=== PATIENT | male | born 1955 | race African-American/Black ===

== ENCOUNTER 2017-11-02 01:25 | Inpatient (IN) | payer MEDICARE, OTHER ==
[~2017-11-02] VITALS: Ht 165.1 cm; Wt 67.1 kg
[2017-11-02] VITALS (53 sets, daily range): BP systolic 94–152; BP diastolic 52–90
[2017-11-02 02:50] LABS: BASOPHILS % 1.4 % (0.0-2.0); EOSINOPHILS % 0.5 % (0.0-5.0); HEMATOCRIT. 38.3 % (42.0-52.0); LYMPHOCYTES % 28.7 % (20.0-50.0); MEAN CORPUSCULAR HEMOGLOBIN 32.3 pg (28.0-32.0); MEAN CORPUSCULAR VOLUME 94.9 fL (80.0-94.0); MEAN PLATELET VOLUME 7.4 fl (7.4-10.4); MONOCYTES % 5.6 % (2.0-8.0); NEUTROPHILS % 63.8 % (40.0-76.0); PLATELET 194 x1000/uL (130-400); RED BLOOD CELL COUNT 4.03 mill/uL (4.7-6.1); RED CELL DISTRIBUTION WIDTH 15.4 % (11.6-14.6)
[2017-11-02 03:09] LABS: CLARITY URINE CLEAR (CLEAR); COLOR URINE YELLOW (YELLOW); GLUCOSE URINE 3+ (NEGATIVE); KETONES URINE NEGATIVE (NEGATIVE); LEUKOCYTE ESTERASE URINE NEGATIVE (NEGATIVE); NITRITE URINE NEGATIVE (NEGATIVE); OCCULT BLOOD URINE NEGATIVE (NEGATIVE); PROTEIN URINE NEGATIVE (NEGATIVE); SPECIFIC GRAVITY URINE 1.021 (1.005-1.030); UROBILINOGEN URINE 0.2 E.U./dL (0.2-1.0)
[2017-11-02 03:22] LABS: CARBON DIOXIDE 28 mEq/L (21-32); CHLORIDE 109 mEq/L (98-107); CREATINE KINASE 225 IU/L (39-308)
[2017-11-02 03:25] LABS: *AMPHETAMINES SCREEN URINE NEGATIVE (NEGATIVE); *BARBITURATES SCREEN URINE NEGATIVE (NEGATIVE); *BENZODIAZEPINES SCREEN URINE NEGATIVE (NEGATIVE); *COCAINE SCREEN URINE NEGATIVE (NEGATIVE); CANNABINOID URINE SCREEN NEGATIVE (NEGATIVE); METHADONE URINE SCREEN NEGATIVE (NEGATIVE); OPIATES URINE SCREEN NEGATIVE (NEGATIVE); PHENCYCLIDINE URINE SCREEN NEGATIVE (NEGATIVE)
[2017-11-02 03:34] LABS: ETHANOL BLOOD 432 mg/dL
[2017-11-02] MEDS ORDERED: LORAZEPAM 2MG/ML CPJ IV ONE (05:00)
[2017-11-02] MEDS ORDERED: IOHEXOL-350 100 ML BOTTLE ONE ×2 (06:37→09:19)
[2017-11-02] MEDS ORDERED: IPRATROPIUM/ALBUTEROL 0.5-3(2.5)MG/3ML NEB INH PRN (07:30)
[2017-11-02] MEDS ORDERED: LORAZEPAM 2MG/ML CPJ IV PRN (07:30)
[2017-11-02] MEDS ORDERED: DIPHENHYDRAMINE 50MG/ML VIAL IV PRN (07:30)
[2017-11-02] MEDS ORDERED: ONDANSETRON HCL 4MG/2ML VIAL IV PRN (07:30)
[2017-11-02] MEDS ORDERED: ACETAMINOPHEN 650MG SUPP PR PRN (07:30)
[2017-11-02 08:55] LABS: FOLIC ACID (FOLATE) SERUM 7.4 ng/mL (>5.38)
[2017-11-02] MEDS ORDERED: MVI, ADULT NO.1 10 ML, FOLIC ACID 1 MG, THIAMINE HCL 100 MG in SODIUM CHLORIDE 0.9% 1,0... IV SCH ×4 (10:00)
[2017-11-02] MEDS: LEVETIRACETAM 500MG PREMIX 100 ML IV SCH ×2 (10:38→21:10)
[2017-11-02] MEDS: FAMOTIDINE 20MG/2ML VIAL IV SCH ×2 (10:38→21:05)
[2017-11-02] MEDS ORDERED: NICARDIPINE 100 MG in SODIUM CHLORIDE 0.9% 60 ML IV PRN (11:30)
[2017-11-02] MEDS: DEXAMETHASONE 4MG/ML 1ML VIAL IV SCH ×2 (12:01→18:03)
[2017-11-02] MEDS: PHENYTOIN SODIUM 100MG/2ML VIAL IV SCH ×2 (14:50→21:05)
[2017-11-02] MEDS ORDERED: DEXT 5%/LACTATED RINGERS 1,000 ML IV SCH (18:00)
[2017-11-02] MEDS ORDERED: DEXTROSE 50% WATER 50ML SYRINGE IV PRN (18:45)
[2017-11-02] MEDS ORDERED: BISA-81 PO (18:59)
[2017-11-02] MEDS ORDERED: NVLG73 SUBCUT (18:59)
[2017-11-02] MEDS ORDERED: CROM10DR7 OP (18:59)
[2017-11-02] MEDS ORDERED: ATOR40TA70 PO (18:59)
[2017-11-02] MEDS ORDERED: CARB100T4 PO (18:59)
[2017-11-02] MEDS ORDERED: PANT40TA4 PO (18:59)
[2017-11-02] MEDS ORDERED: ACET-2853 PO (18:59)
[2017-11-02] MEDS ORDERED: ERGO500013 PO (18:59)
[2017-11-02] MEDS ORDERED: AMYL1CAP57 PO (18:59)
[2017-11-02] MEDS ORDERED: AMLO5TAB4 PO (18:59)
[2017-11-02] MEDS ORDERED: THIA100T75 PO (18:59)
[2017-11-02] MEDS ORDERED: POTASSIUM CHLORIDE INJ 20 MEQ in DEXT 5% WATER 100 ML IV NR (20:00)
[2017-11-02] MEDS: BLOOD SUGAR DIAGNOSTIC STRIP TEST SCH (21:07)
[2017-11-02] MEDS: DEXT 5%/0.9% NACL 1,000 ML IV SCH (21:08)
[2017-11-02] MEDS: INSULIN LISPRO 100 UNITS/ML SUBCUT SCH (21:25)
[2017-11-03] VITALS (68 sets, daily range): BP systolic 119–158; BP diastolic 70–103
[2017-11-03] MEDS: DEXAMETHASONE 4MG/ML 1ML VIAL IV SCH ×5 (00:41→23:56)
[2017-11-03] MEDS: PHENYTOIN SODIUM 100MG/2ML VIAL IV SCH ×3 (05:01→21:50)
[2017-11-03 05:39] LABS: CARBON DIOXIDE 25 mEq/L (21-32); CHLORIDE 105 mEq/L (98-107)
[2017-11-03] MEDS ORDERED: IOHEXOL-350 100 ML BOTTLE ONE ×2 (07:11→19:36)
[2017-11-03] MEDS: INSULIN LISPRO 100 UNITS/ML SUBCUT SCH ×4 (07:28→21:35)
[2017-11-03] MEDS: BLOOD SUGAR DIAGNOSTIC STRIP TEST SCH ×4 (07:28→21:35)
[2017-11-03] MEDS: FAMOTIDINE 20MG/2ML VIAL IV SCH ×2 (08:49→21:34)
[2017-11-03] MEDS: LEVETIRACETAM 500MG PREMIX 100 ML IV SCH ×2 (09:58→23:55)
[2017-11-03] MEDS ORDERED: LORAZEPAM 2MG/ML CPJ IV PRN (12:45)
[2017-11-03] MEDS ORDERED: NICOTINE 21MG PATCH TD SCH (13:00)
[2017-11-03 14:07] LABS: HEPATITIS B SURFACE ANTIGEN NEGATIVE
[2017-11-03 14:36] LABS: HEPATITIS B CORE AB IGM NEGATIVE
[2017-11-03 14:37] LABS: HEPATITIS A AB IGM NEGATIVE (NEGATIVE)
[2017-11-03] MEDS: DEXT 5%/0.9% NACL 1,000 ML IV SCH (15:07)
[2017-11-03] MEDS: FOLIC ACID 1MG TABLET PO SCH (15:08)
[2017-11-03] MEDS ORDERED: LEVETIRACETAM 500MG PREMIX 100 ML IV SCH ×4 (22:00→23:30)
[2017-11-04] VITALS (52 sets, daily range): BP systolic 116–171; BP diastolic 62–111
[2017-11-04] MEDS: BLOOD SUGAR DIAGNOSTIC STRIP TEST SCH ×4 (05:41→20:55)
[2017-11-04] MEDS: INSULIN LISPRO 100 UNITS/ML SUBCUT SCH ×4 (05:45→20:59)
[2017-11-04] MEDS: PHENYTOIN SODIUM 250MG/5ML VIAL IV SCH ×3 (05:53→22:18)
[2017-11-04] MEDS: DEXAMETHASONE 4MG/ML 1ML VIAL IV SCH ×3 (05:53→17:28)
[2017-11-04] MEDS: FOLIC ACID 1MG TABLET PO SCH (09:45)
[2017-11-04] MEDS: FAMOTIDINE 20MG/2ML VIAL IV SCH ×2 (09:45→20:45)
[2017-11-04] MEDS: THIAMINE HCL 100MG TABLET PO SCH (09:45)
[2017-11-04] MEDS: MULTIVITAMINS,THER W-MINERALS TABLET PO SCH (09:45)
[2017-11-04] MEDS: LEVETIRACETAM 500MG PREMIX 100 ML IV SCH ×2 (09:46→22:18)
[2017-11-04] MEDS: NICOTINE 21MG PATCH TD SCH (09:48)
[2017-11-04 10:43] LABS: EOSINOPHILS % 0.1 % (0.0-5.0); LYMPHOCYTES % 18.3 % (20.0-50.0); MEAN CORPUSCULAR HEMOGLOBIN 30.7 pg (28.0-32.0); MEAN CORPUSCULAR VOLUME 94.4 fL (80.0-94.0); MEAN PLATELET VOLUME 7.9 fl (7.4-10.4); MONOCYTES % 9.1 % (2.0-8.0); NEUTROPHILS % 71.5 % (40.0-76.0); PLATELET 241 x1000/uL (130-400); RED BLOOD CELL COUNT 4.23 mill/uL (4.7-6.1); RED CELL DISTRIBUTION WIDTH 14.9 % (11.6-14.6)
[2017-11-04 10:47] LABS: CHLORIDE 104 mEq/L (98-107)
[2017-11-04 10:54] LABS: CARBON DIOXIDE 19 mEq/L (21-32)
[2017-11-04] MEDS ORDERED: PHENYTOIN SODIUM 1,000 MG in SODIUM CHLORIDE 0.9% 100 ML IV SCH (18:00)
[2017-11-05] VITALS: BP 125/71
[2017-11-05] MEDS: DEXAMETHASONE 4MG/ML 1ML VIAL IV SCH ×4 (00:20→17:15)
[2017-11-05 04:00] VITALS: BP 119/73
[2017-11-05] MEDS: PHENYTOIN SODIUM 250MG/5ML VIAL IV SCH (06:19)
[2017-11-05] MEDS: BLOOD SUGAR DIAGNOSTIC STRIP TEST SCH ×3 (06:19→17:08)
[2017-11-05 08:00] VITALS: BP 117/73
[2017-11-05] MEDS: THIAMINE HCL 100MG TABLET PO SCH (08:38)
[2017-11-05] MEDS: MULTIVITAMINS,THER W-MINERALS TABLET PO SCH (08:38)
[2017-11-05] MEDS: FOLIC ACID 1MG TABLET PO SCH (08:39)
[2017-11-05] MEDS: LEVETIRACETAM 500MG PREMIX 100 ML IV SCH (08:39)
[2017-11-05] MEDS: INSULIN LISPRO 100 UNITS/ML SUBCUT SCH ×3 (08:40→17:19)
[2017-11-05] MEDS ORDERED: FAMOTIDINE 20MG TABLET PO SCH (09:00)
[2017-11-05] MEDS: NICOTINE 21MG PATCH TD SCH (11:46)
[2017-11-05 12:00] VITALS: BP 123/75
[2017-11-05] MEDS ORDERED: PHENYTOIN SODIUM EXTENDED 100MG CAPSULE PO SCH (15:00)
[2017-11-05 16:00] VITALS: BP 102/65
[2017-11-05 16:42] VITALS: BP 102/65
== END 2017-11-05 17:30 | DRG 64 ==
LOC: ER 01:39 → MICUNO 07:22 → ENRESERV 07:57 → 7WST 11-04 18:30
PROVIDERS: ADMIT Internal Medicine; ATTEND Internal Medicine
DX: I63.9 Cerebral infarction, unspecified (principal); I60.9 Nontraumatic subarachnoid hemorrhage, unspecified; G92 Toxic encephalopathy; J84.9 Interstitial pulmonary disease, unspecified; K86.0 Alcohol-induced chronic pancreatitis; E11.65 Type 2 diabetes mellitus with hyperglycemia; E83.51 Hypocalcemia; T51.0X1A Toxic effect of ethanol, accidental (unintentional), initial encounter; F19.10 Other psychoactive substance abuse, uncomplicated; G40.909 Epilepsy, unspecified, not intractable, without status epilepticus; D64.9 Anemia, unspecified; E11.9 Type 2 diabetes mellitus without complications; W10.9XXA Fall (on) (from) unspecified stairs and steps, initial encounter; R26.9 Unspecified abnormalities of gait and mobility; Y93.01 Activity, walking, marching and hiking; E87.6 Hypokalemia; F10.229 Alcohol dependence with intoxication, unspecified; Y90.8 Blood alcohol level of 240 mg/100 ml or more; I10 Essential (primary) hypertension; F17.210 Nicotine dependence, cigarettes, uncomplicated; R32 Unspecified urinary incontinence; Y99.8 Other external cause status; Z79.4 Long term (current) use of insulin; Z82.49 Family history of ischemic heart disease and other diseases of the circulatory system; Y92.89 Other specified places as the place of occurrence of the external cause
CPT/HCPCS: 36415; 70450; 70496; 70498; 70551; 71010; 80048; 80053; 80061; 80185; 80305; 81001; 82550; 82607; 82746; 82962; 83036; 83540; 83550; 85025; 86705; 86709; 86803; 87015; 87045; 87340; 87427; 87449; 87493; 89055; 92523; 93306; 93970; 96374; 97112; 97116; 97162; 97166; 97530; 99285; G0482; J1100; J1165; J1200; J1815; J1953; J2060; J3411; J3480; J3490; J7030; J7040; J7042; J7050; J7060; Q9967

== ENCOUNTER 2017-11-05 17:30 | Inpatient (IN) | payer MEDICARE ==
[~2017-11-05] VITALS: Ht 165.1 cm; Wt 67.1 kg
[~2017-11-05 17:30] MED LIST: ACET-2853 PO; AMLO5TAB4 PO; AMYL1CAP57 PO; ATOR40TA70 PO; BISA-81 PO; CARB100T4 PO; CROM10DR7 OP; ERGO500013 PO; NVLG73 SUBCUT; PANT40TA4 PO; THIA100T75 PO
[2017-11-05 18:06] VITALS: BP 108/67
[2017-11-05] MEDS ORDERED: ACETAMINOPHEN 325MG TABLET PO PRN (18:45)
[2017-11-05] MEDS ORDERED: DIPHENHYDRAMINE 50MG/ML VIAL IV PRN (18:45)
[2017-11-05] MEDS ORDERED: ONDANSETRON HCL 4MG/2ML VIAL IV PRN (18:45)
[2017-11-05] MEDS ORDERED: LORAZEPAM 2MG/ML CPJ IV PRN (18:45)
[2017-11-05] MEDS ORDERED: DEXTROSE 50% WATER 50ML SYRINGE IV PRN (18:45)
[2017-11-05] MEDS ORDERED: IPRATROPIUM/ALBUTEROL 0.5-3(2.5)MG/3ML NEB HHN PRN (18:45)
[2017-11-05 20:00] VITALS: BP 119/76
[2017-11-05] MEDS ORDERED: INSULIN LISPRO 100 UNITS/ML SUBCUT SCH (21:00)
[2017-11-05] MEDS: PHENYTOIN SODIUM EXTENDED 100MG CAPSULE PO SCH (21:56)
[2017-11-05] MEDS: FAMOTIDINE 20MG TABLET PO SCH (21:56)
[2017-11-05] MEDS: LEVETIRACETAM 500 MG in SODIUM CHLORIDE 0.9% 100 ML IV SCH (21:56)
[2017-11-05] MEDS: BLOOD SUGAR DIAGNOSTIC STRIP TEST SCH (21:58)
[2017-11-05] MEDS: INSULIN LISPRO 100 UNITS/ML SUBCUT SCH (22:33)
[2017-11-05] MEDS: INSULIN DETEMIR UD 100 UNITS/ML SYR SUBCUT SCH (22:47)
[2017-11-06] MEDS: DEXAMETHASONE 4MG/ML 1ML VIAL IV SCH ×3 (00:13→12:24)
[2017-11-06] MEDS: BLOOD SUGAR DIAGNOSTIC STRIP TEST SCH ×4 (06:12→21:37)
[2017-11-06] MEDS: PHENYTOIN SODIUM EXTENDED 100MG CAPSULE PO SCH ×3 (06:13→21:37)
[2017-11-06] MEDS: INSULIN LISPRO 100 UNITS/ML SUBCUT SCH ×7 (06:19→21:40)
[2017-11-06] MEDS ORDERED: BLOOD SUGAR DIAGNOSTIC STRIP TEST SCH (06:30)
[2017-11-06 07:13] LABS: BASOPHILS % 0.5 % (0.0-2.0); HEMATOCRIT. 37.9 % (42.0-52.0); HEMOGLOBIN. 12.7 g/dL (14.0-18.0); LYMPHOCYTES % 29.8 % (20.0-50.0); MEAN CORPUSCULAR HEMOGLOBIN 31.5 pg (28.0-32.0); MEAN CORPUSCULAR VOLUME 94.2 fL (80.0-94.0); MEAN PLATELET VOLUME 7.9 fl (7.4-10.4); NEUTROPHILS % 61.7 % (40.0-76.0); PLATELET 242 x1000/uL (130-400); RED BLOOD CELL COUNT 4.03 mill/uL (4.7-6.1); RED CELL DISTRIBUTION WIDTH 14.6 % (11.6-14.6)
[2017-11-06 08:00] VITALS: BP 106/72
[2017-11-06] MEDS: LEVETIRACETAM 500 MG in SODIUM CHLORIDE 0.9% 100 ML IV SCH ×2 (08:34→21:37)
[2017-11-06] MEDS: THIAMINE HCL 100MG TABLET PO SCH (08:38)
[2017-11-06] MEDS: MULTIVITAMINS,THER W-MINERALS TABLET PO SCH (08:38)
[2017-11-06] MEDS: FOLIC ACID 1MG TABLET PO SCH (08:38)
[2017-11-06] MEDS: FAMOTIDINE 20MG TABLET PO SCH ×2 (08:38→21:37)
[2017-11-06 08:50] LABS: CARBON DIOXIDE 27 mEq/L (21-32); CHLORIDE 102 mEq/L (98-107)
[2017-11-06] MEDS: NICOTINE 21MG PATCH TD SCH (09:04)
[2017-11-06 20:00] VITALS: BP 100/65
[2017-11-06] MEDS: DEXAMETHASONE 1MG TABLET PO SCH (21:37)
[2017-11-06] MEDS: INSULIN DETEMIR UD 100 UNITS/ML SYR SUBCUT SCH (21:39)
[2017-11-07] MEDS: BLOOD SUGAR DIAGNOSTIC STRIP TEST SCH ×4 (06:09→21:34)
[2017-11-07] MEDS: PHENYTOIN SODIUM EXTENDED 100MG CAPSULE PO SCH ×3 (06:09→21:34)
[2017-11-07] MEDS: INSULIN LISPRO 100 UNITS/ML SUBCUT SCH ×7 (06:36→21:35)
[2017-11-07 08:00] VITALS: BP 100/66
[2017-11-07] MEDS: MULTIVITAMINS,THER W-MINERALS TABLET PO SCH (08:44)
[2017-11-07] MEDS: DEXAMETHASONE 1MG TABLET PO SCH ×2 (08:44→21:34)
[2017-11-07] MEDS: FAMOTIDINE 20MG TABLET PO SCH ×2 (08:44→21:34)
[2017-11-07] MEDS: THIAMINE HCL 100MG TABLET PO SCH (08:44)
[2017-11-07] MEDS: FOLIC ACID 1MG TABLET PO SCH (08:44)
[2017-11-07] MEDS: LEVETIRACETAM 500 MG in SODIUM CHLORIDE 0.9% 100 ML IV SCH ×2 (08:44→21:34)
[2017-11-07] MEDS: NICOTINE 21MG PATCH TD SCH (08:53)
[2017-11-07 20:20] VITALS: BP 108/70
[2017-11-07] MEDS: INSULIN DETEMIR UD 100 UNITS/ML SYR SUBCUT SCH (21:36)
[2017-11-08] MEDS: PHENYTOIN SODIUM EXTENDED 100MG CAPSULE PO SCH ×3 (06:38→21:36)
[2017-11-08] MEDS: BLOOD SUGAR DIAGNOSTIC STRIP TEST SCH ×4 (06:38→21:36)
[2017-11-08] MEDS: INSULIN LISPRO 100 UNITS/ML SUBCUT SCH ×7 (06:39→21:42)
[2017-11-08 08:00] VITALS: BP 111/72
[2017-11-08] MEDS: LEVETIRACETAM 500 MG in SODIUM CHLORIDE 0.9% 100 ML IV SCH (08:51)
[2017-11-08] MEDS: MULTIVITAMINS,THER W-MINERALS TABLET PO SCH (08:51)
[2017-11-08] MEDS: THIAMINE HCL 100MG TABLET PO SCH (08:51)
[2017-11-08] MEDS: FOLIC ACID 1MG TABLET PO SCH (08:51)
[2017-11-08] MEDS: FAMOTIDINE 20MG TABLET PO SCH ×2 (08:51→21:36)
[2017-11-08] MEDS: DEXAMETHASONE 1MG TABLET PO SCH ×2 (08:52→21:36)
[2017-11-08] MEDS: NICOTINE 21MG PATCH TD SCH (08:56)
[2017-11-08 20:00] VITALS: BP 105/66
[2017-11-08] MEDS ORDERED: LEVETIRACETAM 500MG PREMIX 100 ML IV SCH (21:00)
[2017-11-08] MEDS: LEVETIRACETAM 500MG TABLET PO SCH (21:36)
[2017-11-08] MEDS: INSULIN DETEMIR UD 100 UNITS/ML SYR SUBCUT SCH (21:43)
[2017-11-09] MEDS: BLOOD SUGAR DIAGNOSTIC STRIP TEST SCH (06:05)
[2017-11-09] MEDS: PHENYTOIN SODIUM EXTENDED 100MG CAPSULE PO SCH (06:27)
[2017-11-09] MEDS: INSULIN LISPRO 100 UNITS/ML SUBCUT SCH ×2 (06:29)
[2017-11-09 08:00] VITALS: BP 136/84
[2017-11-09] MEDS: MULTIVITAMINS,THER W-MINERALS TABLET PO SCH (08:27)
[2017-11-09] MEDS: LEVETIRACETAM 500MG TABLET PO SCH (08:27)
[2017-11-09] MEDS: FOLIC ACID 1MG TABLET PO SCH (08:27)
[2017-11-09] MEDS: FAMOTIDINE 20MG TABLET PO SCH (08:27)
[2017-11-09] MEDS: DEXAMETHASONE 1MG TABLET PO SCH (08:27)
[2017-11-09] MEDS: NICOTINE 21MG PATCH TD SCH (08:28)
[2017-11-09] MEDS: THIAMINE HCL 100MG TABLET PO SCH (08:28)
[2017-11-09 10:46] VITALS: BP 101/67
[2017-11-10 19:12] LABS: 25-HYDROXY VITAMIN D3 9.1 ng/mL (.)
== END 2017-11-09 11:00 | disposition home health service (06) | DRG 64 ==
PROVIDERS: ADMIT Physical Medicine & Rehabilitation Spinal Cord Injury Medicine; ATTEND Internal Medicine
DX: I63.9 Cerebral infarction, unspecified (principal); S06.6X9A Traumatic subarachnoid hemorrhage with loss of consciousness of unspecified duration, initial encounter; E44.0 Moderate protein-calorie malnutrition; S06.5X9A Traumatic subdural hemorrhage with loss of consciousness of unspecified duration, initial encounter; E11.65 Type 2 diabetes mellitus with hyperglycemia; E83.51 Hypocalcemia; E11.9 Type 2 diabetes mellitus without complications; D63.8 Anemia in other chronic diseases classified elsewhere; F10.229 Alcohol dependence with intoxication, unspecified; F17.210 Nicotine dependence, cigarettes, uncomplicated; R26.9 Unspecified abnormalities of gait and mobility; R53.81 Other malaise; W18.39XA Other fall on same level, initial encounter; I10 Essential (primary) hypertension; Z82.49 Family history of ischemic heart disease and other diseases of the circulatory system; Z91.14 Patient's other noncompliance with medication regimen; Z79.899 Other long term (current) drug therapy; Z86.73 Personal history of transient ischemic attack (TIA), and cerebral infarction without residual deficits; Z68.24 Body mass index [BMI] 24.0-24.9, adult
CPT/HCPCS: 36415; 80053; 82306; 82962; 84134; 84443; 84630; 85025; 92523; 92610; 93970; 97110; 97112; 97116; 97162; 97166; 97530; 97532; 97535; J1100; J1815; J1953; J7040; J7050; J8540

== ENCOUNTER 2020-06-06 13:53 | Inpatient (IN) | payer MEDICARE ==
[~2020-06-06] VITALS: Ht 177.8 cm; Wt 62.6 kg
[2020-06-06] MEDS ORDERED: LEVETIRACETAM 1000MG/100ML 100 ML IV ONE (14:30)
[2020-06-06] MEDS ORDERED: LIDOCAINE HCL/EPINEPHRINE 1%-EPI 1:100,000 30 ML VIAL INFIL ONE (14:30)
[2020-06-06] MEDS ORDERED: TETANUS, DIPHTHERIA, PERTUSSIS VAC/PF 0.5ML (>7YR OLD) IM ONE (14:30)
[2020-06-06] MEDS ORDERED: LIDOCAINE HCL/EPINEPHRINE 1%-EPI 1:100,000 20 ML VIAL INFIL NR (14:30)
[2020-06-06 14:49] LABS: BASOPHILS % 3.4 % (0.0-2.0); EOSINOPHILS % 0.3 % (0.0-5.0); HEMATOCRIT. 42.7 % (42.0-52.0); HEMOGLOBIN. 14.9 g/dL (14.0-18.0); LYMPHOCYTES % 40.8 % (20.0-50.0); MEAN CORPUSCULAR HEMOGLOBIN 33.2 pg (28.0-32.0); MEAN CORPUSCULAR VOLUME 95.3 fL (80.0-94.0); MEAN PLATELET VOLUME 7.3 fl (7.4-10.4); MONOCYTES % 5.5 % (2.0-8.0); PLATELET 310 x1000/uL (130-400); RED BLOOD CELL COUNT 4.48 mill/uL (4.7-6.1); RED CELL DISTRIBUTION WIDTH 14.8 % (11.6-14.6)
[2020-06-06 14:56] LABS: CHLORIDE 106 mEq/L (98-107)
[2020-06-06 15:22] LABS: ETHANOL BLOOD 419 mg/dL
[2020-06-06 23:00] VITALS: BP 125/70
[2020-06-06 23:08] LABS: CLARITY URINE CLEAR (CLEAR); COLOR URINE YELLOW (YELLOW); KETONES URINE 2+ (NEGATIVE); LEUKOCYTE ESTERASE URINE TRACE (NEGATIVE); NITRITE URINE POSITIVE (NEGATIVE); OCCULT BLOOD URINE NEGATIVE (NEGATIVE); PROTEIN URINE 1+ (NEGATIVE); SPECIFIC GRAVITY URINE 1.019 (1.005-1.030); UROBILINOGEN URINE 0.2 E.U./dL (0.2-1.0)
[2020-06-06] MEDS ORDERED: ACETAMINOPHEN 325MG TABLET PO PRN (23:15)
[2020-06-06] MEDS ORDERED: HYDRALAZINE 20MG/ML VIAL IV PRN (23:15)
[2020-06-06] MEDS ORDERED: LORAZEPAM 2MG/ML CPJ IV PRN (23:15)
[2020-06-06] MEDS ORDERED: ONDANSETRON HCL 4MG/2ML INJ IV PRN (23:15)
[2020-06-06] MEDS ORDERED: DIPHENHYDRAMINE 50MG/ML VIAL IV PRN (23:15)
[2020-06-06] MEDS ORDERED: ZOLPIDEM TARTRATE 5MG TABLET PO PRN (23:15)
[2020-06-06] MEDS ORDERED: POTASSIUM CHLORIDE 20MEQ TABLET SR PO NR (23:21)
[2020-06-06 23:30] LABS: *AMPHETAMINES SCREEN URINE NEGATIVE (NEGATIVE); *BARBITURATES SCREEN URINE NEGATIVE (NEGATIVE); *BENZODIAZEPINES SCREEN URINE NEGATIVE (NEGATIVE); *COCAINE SCREEN URINE NEGATIVE (NEGATIVE); CANNABINOID URINE SCREEN NEGATIVE (NEGATIVE)
[2020-06-06] MEDS ORDERED: SODIUM CHLORIDE 0.9% 1,000 ML IV SCH (23:30)
[2020-06-06 23:31] LABS: METHADONE URINE SCREEN NEGATIVE (NEGATIVE); OPIATES URINE SCREEN NEGATIVE (NEGATIVE); PHENCYCLIDINE URINE SCREEN NEGATIVE (NEGATIVE)
[2020-06-07] VITALS: BP 125/70
[2020-06-07] MEDS ORDERED: PHENYTOIN SODIUM 1,000 MG in SODIUM CHLORIDE 0.9% 100 ML IV NR (01:00)
[2020-06-07] MEDS ORDERED: MVI, ADULT NO.1 10 ML, FOLIC ACID 1 MG, THIAMINE HCL 100 MG in SODIUM CHLORIDE 0.9% 1,0... IV SCH ×4 (01:00)
[2020-06-07] MEDS ORDERED: PNEUMOCOCCAL 23-VAL P-SAC VAC 0.5 ML IM ONE (02:15)
[2020-06-07 04:00] VITALS: BP 129/72
[2020-06-07 08:00] VITALS: BP 131/73
[2020-06-07] MEDS: ENOXAPARIN 40MG/0.4ML SYR SUBCUT SCH (09:32)
[2020-06-07] MEDS: LEVETIRACETAM 500MG/5ML CUP PO SCH ×2 (09:32→21:10)
[2020-06-07] MEDS: FAMOTIDINE 20MG TABLET PO SCH ×2 (09:32→21:10)
[2020-06-07 12:00] VITALS: BP 133/78
[2020-06-07 13:40] LABS: CREATINE KINASE 133 IU/L (39-308)
[2020-06-07 13:46] LABS: CREATINE KINASE MB FRACTION < 1.0 ng/mL (0.5-3.6)
[2020-06-07] MEDS ORDERED: POTASSIUM CHLORIDE 20MEQ TABLET SR PO NR (15:00)
[2020-06-07 16:00] VITALS: BP 134/77
[2020-06-07] MEDS ORDERED: MAGNESIUM 2 G PREMIX 50 ML IV NR (16:00)
[2020-06-07 16:46] LABS: T4 FREE 0.92 ng/dL (0.76-1.46)
[2020-06-07] MEDS: ACETAMINOPHEN 325MG TABLET PO PRN (17:00)
[2020-06-07 18:20] LABS: FOLIC ACID (FOLATE) SERUM >20 ng/mL ng/mL (>5.38)
[2020-06-07 18:32] LABS: VITAMIN B12 SERUM 786 pg/mL (211-911)
[2020-06-07 20:00] VITALS: BP 117/78
[2020-06-08] VITALS: BP 142/82
[2020-06-08 04:00] VITALS: BP 121/85
[2020-06-08 06:13] LABS: CHLORIDE 100 mEq/L (98-107)
[2020-06-08 06:20] LABS: PHOSPHORUS 2.3 mg/dL (2.5-4.9)
[2020-06-08 08:00] VITALS: BP 140/85
[2020-06-08] MEDS: FOLIC ACID 1MG TABLET PO SCH (08:10)
[2020-06-08] MEDS: LEVETIRACETAM 500MG/5ML CUP PO SCH ×2 (08:10→21:42)
[2020-06-08] MEDS: THIAMINE HCL 100MG TABLET PO SCH (08:10)
[2020-06-08] MEDS: ENOXAPARIN 40MG/0.4ML SYR SUBCUT SCH (08:11)
[2020-06-08] MEDS: FAMOTIDINE 20MG TABLET PO SCH ×2 (08:11→21:42)
[2020-06-08] MEDS ORDERED: DEXTROSE 50% WATER 50ML SYRINGE IV PRN (10:30)
[2020-06-08] MEDS: BLOOD SUGAR DIAGNOSTIC STRIP TEST SCH ×3 (11:45→21:56)
[2020-06-08] MEDS: INSULIN LISPRO 100 UNITS/ML SUBCUT SCH ×3 (11:55→21:55)
[2020-06-08 12:00] VITALS: BP 132/78
[2020-06-08] MEDS: ACETAMINOPHEN 325MG TABLET PO PRN (17:19)
[2020-06-08 20:00] VITALS: BP 133/75
[2020-06-09] VITALS: BP 148/99
[2020-06-09 04:00] VITALS: BP 124/76
[2020-06-09] MEDS: BLOOD SUGAR DIAGNOSTIC STRIP TEST SCH ×2 (05:46→12:19)
[2020-06-09] MEDS: INSULIN LISPRO 100 UNITS/ML SUBCUT SCH ×2 (06:13→12:25)
[2020-06-09 08:55] VITALS: BP 116/77
[2020-06-09] MEDS: THIAMINE HCL 100MG TABLET PO SCH (09:01)
[2020-06-09] MEDS: FOLIC ACID 1MG TABLET PO SCH (09:01)
[2020-06-09] MEDS: LEVETIRACETAM 500MG/5ML CUP PO SCH (09:01)
[2020-06-09] MEDS: FAMOTIDINE 20MG TABLET PO SCH (09:01)
[2020-06-09] MEDS: ENOXAPARIN 40MG/0.4ML SYR SUBCUT SCH (09:02)
[2020-06-09] MEDS ORDERED: METFORMIN HCL 500MG TABLET PO SCH (10:45)
[2020-06-09 12:00] VITALS: BP 121/73
[2020-06-09 15:49] VITALS: BP 125/78
[2020-06-09 16:01] VITALS: BP 125/78
== END 2020-06-09 16:15 | disposition home or self-care (01) | DRG 100 ==
LOC: ER 14:06 → 5WST 19:57 → ENRESERV 22:13
PROVIDERS: ADMIT Internal Medicine; ATTEND Internal Medicine
DX: G40.909 Epilepsy, unspecified, not intractable, without status epilepticus (principal); G92 Toxic encephalopathy; N39.0 Urinary tract infection, site not specified; F10.129 Alcohol abuse with intoxication, unspecified; I10 Essential (primary) hypertension; E11.42 Type 2 diabetes mellitus with diabetic polyneuropathy; E78.00 Pure hypercholesterolemia, unspecified; E78.5 Hyperlipidemia, unspecified; F43.10 Post-traumatic stress disorder, unspecified; E87.6 Hypokalemia; E83.42 Hypomagnesemia; Y90.8 Blood alcohol level of 240 mg/100 ml or more; R94.31 Abnormal electrocardiogram [ECG] [EKG]; F17.210 Nicotine dependence, cigarettes, uncomplicated; Y93.01 Activity, walking, marching and hiking; W01.0XXA Fall on same level from slipping, tripping and stumbling without subsequent striking against object, initial encounter; Y92.89 Other specified places as the place of occurrence of the external cause; Y99.8 Other external cause status; Z79.4 Long term (current) use of insulin; Z91.14 Patient's other noncompliance with medication regimen; Z91.81 History of falling
CPT/HCPCS: 36415; 70551; 71045; 80048; 80053; 80305; 80320; 81003; 82140; 82550; 82553; 82607; 82746; 82962; 83036; 83735; 83880; 84100; 84439; 84443; 84481; 84484; 85025; 90715; 93005; 96365; 97116; 97162; 97166; 99285; J1165; J1650; J1815; J1953; J3411; J3475; J3490; J7030; J7050; G0480